=== PATIENT | female | born 1950 | race Caucasian/White ===

== ENCOUNTER → 2023-05-22 09:55 | Outpatient (BNVA) | payer MEDICARE, SELFPAY | PROVIDERS: PCP Family Medicine; Visit Provider Internal Medicine Rheumatology | DX: Z79.899 Other long term (current) drug therapy (principal); R76.8 Other specified abnormal immunological findings in serum; Z11.1 Encounter for screening for respiratory tuberculosis; Z11.59 Encounter for screening for other viral diseases; M45.6 Ankylosing spondylitis lumbar region; M19.041 Primary osteoarthritis, right hand; M19.071 Primary osteoarthritis, right ankle and foot; M19.042 Primary osteoarthritis, left hand | CPT/HCPCS: 36415; 73130; 73630; 80076; 82306; 82565; 85025; 85651; 86140; 86160; 86162; 86200; 86235; 86255; 86376; 86431; 86480; 86704; 86800; 86803; 86812; 87340; 99204 ==

== ENCOUNTER → 2023-07-17 12:16 | Outpatient (BNVA) | payer MEDICARE, SELFPAY | PROVIDERS: PCP Family Medicine; Visit Provider Internal Medicine Rheumatology | DX: M25.50 Pain in unspecified joint (principal); R76.8 Other specified abnormal immunological findings in serum; M19.041 Primary osteoarthritis, right hand; M19.042 Primary osteoarthritis, left hand; M06.041 Rheumatoid arthritis without rheumatoid factor, right hand; M06.042 Rheumatoid arthritis without rheumatoid factor, left hand | CPT/HCPCS: 99214 ==

== ENCOUNTER → 2024-03-17 13:02 | Outpatient (BNVA) | payer MEDICARE, SELFPAY | PROVIDERS: PCP Family Medicine; Visit Provider Internal Medicine Rheumatology | DX: M25.50 Pain in unspecified joint (principal); R76.8 Other specified abnormal immunological findings in serum; M19.041 Primary osteoarthritis, right hand; M19.042 Primary osteoarthritis, left hand; M06.041 Rheumatoid arthritis without rheumatoid factor, right hand; M06.042 Rheumatoid arthritis without rheumatoid factor, left hand; Z22.7 Latent tuberculosis; Z87.891 Personal history of nicotine dependence | CPT/HCPCS: 99214 ==

== ENCOUNTER 2024-04-14 11:39 | Outpatient (CLI) | payer MEDICARE, SELFPAY ==
--- NOTE | 2024-04-14 11:42 | XR_ITS ---
WS: [id number] Examination: XR chest 1V [id number] Reason for Exam: LTBI Date: April 14, 2024 Comparison: None. Findings: The heart is prominent in size. The mediastinum is not widened. The central markings are mildly increased suggesting pulmonary venous hypertension. There is no overt failure or large effusion. There is no dense consolidation. Surgical changes of a left shoulder prosthesis are noted. XR/XR chest 1V [id number] IMPRESSION: The heart is prominent size. Findings suggest pulmonary venous hypertension.
== END 2024-04-14 11:40 | disposition home or self-care (01) ==
LOC: RAD 11:40
PROVIDERS: PCP Family Medicine; Visit Provider Student in an Organized Health Care Education/Training Program
DX: Z22.7 Latent tuberculosis (principal); I27.23 Pulmonary hypertension due to lung diseases and hypoxia; Z79.899 Other long term (current) drug therapy
CPT/HCPCS: 71045; 99205

== ENCOUNTER → 2024-07-28 13:05 | Outpatient (BNVA) | payer MEDICARE, SELFPAY | PROVIDERS: PCP Family Medicine; Visit Provider Internal Medicine Rheumatology | DX: M06.041 Rheumatoid arthritis without rheumatoid factor, right hand (principal); M06.042 Rheumatoid arthritis without rheumatoid factor, left hand; Z79.899 Other long term (current) drug therapy; M25.50 Pain in unspecified joint; R76.8 Other specified abnormal immunological findings in serum; M19.041 Primary osteoarthritis, right hand; M19.042 Primary osteoarthritis, left hand | CPT/HCPCS: 99214 ==

== ENCOUNTER → 2024-11-03 14:07 | Outpatient (BNVA) | payer MEDICARE, SELFPAY | PROVIDERS: PCP Family Medicine; Visit Provider Internal Medicine Rheumatology | DX: M25.50 Pain in unspecified joint (principal); R76.8 Other specified abnormal immunological findings in serum; M06.041 Rheumatoid arthritis without rheumatoid factor, right hand; M06.042 Rheumatoid arthritis without rheumatoid factor, left hand; Z79.899 Other long term (current) drug therapy; M19.041 Primary osteoarthritis, right hand; M19.042 Primary osteoarthritis, left hand | CPT/HCPCS: 36415; 80076; 82565; 85025; 85651; 86140; 99214 ==

== ENCOUNTER → 2025-03-01 10:20 | Outpatient (BNVA) | payer MEDICARE, SELFPAY | PROVIDERS: PCP Family Medicine; Visit Provider Internal Medicine Rheumatology | DX: Z79.899 Other long term (current) drug therapy (principal); M25.50 Pain in unspecified joint; R76.8 Other specified abnormal immunological findings in serum; M19.041 Primary osteoarthritis, right hand; M19.042 Primary osteoarthritis, left hand; M06.041 Rheumatoid arthritis without rheumatoid factor, right hand; M06.042 Rheumatoid arthritis without rheumatoid factor, left hand | CPT/HCPCS: 36415; 80076; 82565; 85025; 85651; 86140; 86480; 99214 ==

== ENCOUNTER → 2025-07-20 11:29 | Outpatient (BNVA) | payer MEDICARE, SELFPAY | PROVIDERS: PCP Family Medicine; Visit Provider Internal Medicine Rheumatology | DX: M13.0 Polyarthritis, unspecified (principal); R76.89 Other specified abnormal immunological findings in serum; M06.041 Rheumatoid arthritis without rheumatoid factor, right hand; M06.042 Rheumatoid arthritis without rheumatoid factor, left hand; Z79.899 Other long term (current) drug therapy; N18.9 Chronic kidney disease, unspecified; Z84.0 Family history of diseases of the skin and subcutaneous tissue; M25.50 Pain in unspecified joint | CPT/HCPCS: 36415; 80076; 82565; 85025; 85651; 86140; 99214 ==